=== PATIENT | male | born 1980 | race Caucasian/White ===

== ENCOUNTER → 2018-01-20 09:38 | Outpatient (CLI) | payer MEDICAID, SELFPAY ==
[2018-01-20 12:33] LABS: Vitamin D,25 Hydroxy 13.6 ng/mL (19.95-100.01)
[2018-01-20 12:37] LABS: Anion Gap 8 (5-15); BUN 12 mg/dL (7-18); BUN/Creat Ratio 15.6 RATIO (10-20); Calcium,Total 8.7 mg/dL (8.5-10.1); Chloride 100 mmol/L (98-107); Cholesterol 146 mg/dL (200); Creatinine, Serum 0.77 mg/dL (0.70-1.30); EST Glomerular Filtration Rate 120 mL/min (>60); Est Glom Filt Rate - Afr Amer 145 mL/min (>60); Glucose 83 mg/dL (74-106); High Density Lipoprotein 26 mg/dL; Sodium Level 134 mmol/L (136-145); Thyroid Stim Hormone (TSH) 0.56 uIU/mL (0.358-3.74); Triglycerides 266 mg/dL; Very Low Density Lipoprotein 53 mg/dL (5-40)
== END ==
PROVIDERS: Family Provider Family Medicine; PCP Family Medicine; Visit Provider Family Medicine
DX: Z00.00 Encounter for general adult medical examination without abnormal findings (principal)
CPT/HCPCS: 36415; 80048; 80061; 82306; 84443

== ENCOUNTER 2018-05-25 18:07 | Emergency (ER) | payer MEDICAID, SELFPAY ==
[2018-05-25 18:07] VITALS: BP 159/105; PULSE 108; RESP 16; TEMP 36.7; O2SAT 98; BMI 38.7
--- NOTE | 2018-05-25 18:30 | ED.VISSUMM ---
- ER Visit Summary Date of Service: 05/25/18 Chief Complaint: Anxiety History of Present Illness: The patient is a 37 M who presents with worsening anxiety over the past week. Patient states he lives in a residential and other residents there cause him to have increased anxiety. Patient denies any suicidal or homicidal ideations. Patient states he is on Xanax which helps for approximately 4 hours. Patient states he feels like he needs to have his Xanax dose increased. Patient states he blacks out when he becomes anxious. Patient denies any loss of consciousness. Patient denies any chest pain. Patient admits to some intermittent shortness of breath, nausea, and vomiting with his anxiety attacks. Patient denies any fevers or chills. Physical Examination: Vital signs are stable. Patient is afebrile. Patient is in no acute distress. Cranial nerves II through XII are intact. Strength is 5/5 bilateral in the upper and lower extremities. There are no sensory deficits noted. Patient is ambulating without difficulty. Heart was regular rate and rhythm. Lungs are clear and equal bilaterally. There is good respiratory effort noted. Abdomen is soft nontender. Patient does have a somewhat anxious mood on exam. Patient denies any suicidal or homicidal ideations. The remaining physical exam is within normal limits. Test Results: CBC showed a slight leukocytosis of 12.0. Basic metabolic profile is within normal limits. Emergency Department Course and Treatment: Patient was given a dose of Xanax here. Patient felt better on reevaluation. Patient was instructed that he needs to follow-up with his primary care physician or the physician who is covering for his primary care physician for any further medication adjustments with his Xanax. Patient understood and was agreeable with the plan. All questions were answered. Disposition: Discharged home Impression: Acute anxiety This note was generated with [employer] dictation software. It may contain incorrect words, spelling, and punctuation that were not noted in review of the chart prior to signing ED Disposition - Plan for ED Patient: Disposition: Home or Assisted Living Chief Complaint: Anxiety Diagnosis: Acute anxiety Instructions: ED Panic Attack Referrals: Marcelo Lantigua MD [Primary Care Provider] -
--- NOTE | 2018-05-25 18:34 | ED.DCSUM_ITS ---
- ER Visit Summary Date of Service: 05/25/18 Chief Complaint: Anxiety History of Present Illness: The patient is a 37 M who presents with worsening anxiety over the past week. Patient states he lives in a half-way and other residents there cause him to have increased anxiety. Patient denies any suicidal or homicidal ideations. Patient states he is on Xanax which helps for approximately 4 hours. Patient states he feels like he needs to have his Xanax dose increased. Patient states he blacks out when he becomes anxious. Patient denies any loss of consciousness. Patient denies any chest pain. Patient admits to some intermittent shortness of breath, nausea, and vomiting with his anxiety attacks. Patient denies any fevers or chills. Physical Examination: Vital signs are stable. Patient is afebrile. Patient is in no acute distress. Cranial nerves II through XII are intact. Strength is 5/ 5 bilateral in the upper and lower extremities. There are no sensory deficits noted. Patient is ambulating without difficulty. Heart was regular rate and rhythm. Lungs are clear and equal bilaterally. There is good respiratory effort noted. Abdomen is soft nontender. Patient does have a somewhat anxious mood on exam. Patient denies any suicidal or homicidal ideations. The remaining physical exam is within normal limits. Test Results: CBC showed a slight leukocytosis of 12.0. Basic metabolic profile is within normal limits. Emergency Department Course and Treatment: Patient was given a dose of Xanax here. Patient felt better on reevaluation. Patient was instructed that he needs to follow-up with his primary care physician or the physician who is covering for his primary care physician for any further medication adjustments with his Xanax. Patient understood and was agreeable with the plan. All questions were answered. Disposition: Discharged home Impression: Acute anxiety This note was generated with [employer] dictation software. It may contain incorrect words, spelling, and punctuation that were not noted in review of the chart prior to signing ED Disposition - Plan for ED Patient: Disposition: Home or Assisted Living Chief Complaint: Anxiety Diagnosis: Acute anxiety Instructions: ED Panic Attack Referrals: Marcelo Lantigua MD [Primary Care Provider] -
[2018-05-25] MEDS: ALPRAZolam 0.5 MG Tablet 1 MG PO (18:55)
[2018-05-25 19:38] LABS: Absolute Lymphocyte Count 3.41 X10^3/ul (0.83-4.51); Absolute Neutrophil Count 7.6 X10^3/uL (2.0-7.7); Basophil# 0.02 X10^3/uL; Basophil% 0.2 % (0-1); Eosinophil# 0.24 X10^3/uL; Hematocrit 45.3 % (40-54); Hemoglobin 15.4 g/dl (13.0-16.5); Lymphocyte # 3.41 X10^3/ul (4.0); Lymphocyte % 28.3 % (19-41); Mean Corpuscular Hgb 30.9 pg (27.0-32.0); Mean Platelet Vol. 9.3 fl (6.2-12.0); Monocyte# 0.66 X10^3/uL; Monocyte% 5.5 % (0-10); Neutrophil # 7.64 X10^3/uL (2.7-7.7); Neutrophil % 63.5 % (47-70); Platelet Count 263 K/mm3 (150-450); RBC Distribution Width CV 13.3 % (11.6-14.6); RBC Distribution Width SD 43.6 fl (35.1-43.9); Red Blood Count 4.98 M/mm3 (4.6-6.2)
[2018-05-25 19:39] LABS: Anion Gap 7 (5-15); BUN 13 mg/dL (7-18); BUN/Creat Ratio 15.6 RATIO (10-20); Calcium,Total 9.1 mg/dL (8.5-10.1); Chloride 103 mmol/L (98-107); Creatinine, Serum 0.84 mg/dL (0.70-1.30); EST Glomerular Filtration Rate 109 mL/min (>60); Est Glom Filt Rate - Afr Amer 132 mL/min (>60); Estimated Creatinine Clearance 123.12 ml/min; Glucose 114 mg/dL (74-106); Potassium 3.9 mmol/L (3.5-5.1); Sodium Level 138 mmol/L (136-145)
[2018-05-25 19:40] LABS: POSITIVE COUNT NO; POSITIVE DIFFERENTIAL NO; POSITIVE MORPHOLOGY NO
[2018-05-25] MEDS: Acetaminophen 500 MG Tablet 1000 MG PO (20:17)
[2018-05-25 20:39] VITALS: BP 145/99; PULSE 105; RESP 18
== END 2018-05-25 20:42 | disposition home or self-care (01) ==
PROVIDERS: Emergency Provider Emergency Medicine; Family Provider Family Medicine; PCP Family Medicine
DX: F41.9 Anxiety disorder, unspecified (principal); E66.9 Obesity, unspecified; F43.10 Post-traumatic stress disorder, unspecified; F25.9 Schizoaffective disorder, unspecified; Z87.19 Personal history of other diseases of the digestive system; Z79.899 Other long term (current) drug therapy; F17.200 Nicotine dependence, unspecified, uncomplicated
CPT/HCPCS: 80048; 85025; 99283

== ENCOUNTER 2018-06-17 21:42 | Emergency (ER) | payer MEDICAID, SELFPAY ==
[2018-06-17 21:43] VITALS: BP 129/76; PULSE 105; RESP 14; TEMP 36.7; O2SAT 98; BMI 39.5
--- NOTE | 2018-06-17 22:24 | ED.DCSUM_ITS ---
- ER Visit Summary Date of Service: 06/17/18 Chief Complaint: Fell asleep History of Present Illness: The patient is a 37 M who presents to the emergency department by squad. Patient was in his normal state of health. He currently stays at a senior care as he has a history of underlying psychiatric disease. The patient took his Restoril 30 mg tablet tonight. He then drove to his grandmother's house because he helps her around the house. He states that he was feeling very tired in the car and actually fell asleep. Squad was called because he was asleep in the car. On squad arrival, the patient woke easily. He states that he felt like just because of the medication. He denies any headaches, vision changes, fever, chills, other systemic symptoms. He denies any other suicidality, homicidality, delusions or hallucinations. He states that he feels back to his normal state of health. He states that it was just because of the medication. Physical Examination: Vital signs reviewed General: Well-nourished, well-developed Head: Normocephalic, atraumatic Eyes: Pupils equal and reactive, extraocular muscles intact Neck, supple, no lymphadenopathy Heart: Regular rate and rhythm Respiratory: No distress, clear bilaterally Abdomen: Soft, nontender, nondistended, no peritoneal signs Back: Nontender Extremities: Nontender, no edema, no cords Skin: Normal color no rash Neuro: Alert and oriented, no focal or lateralizing deficits Test Results: [] Emergency Department Course and Treatment: The patient is awake and alert. He has a benign physical examination. He has normal vital signs. At this time, I do not feel any workup is necessary. He took his sleeping pill early at his senior care and then fell asleep. He does not appear to be intoxicated. He has a normal neurologic examination. The patient will be discharged to his senior care. Treatment Plan: [] Disposition: Discharge Impression: 1. Therapeutic medication use This note was generated with [employer] dictation software. It may contain incorrect words, spelling, and punctuation that were not noted in review of the chart prior to signing ED Disposition - Plan for ED Patient: Chief Complaint: Fatigue Instructions: ED Weakness [facility] Referrals: Marcelo Lantigua MD [Primary Care Provider] -
--- NOTE | 2018-06-17 22:35 | ED.RN ---
pt reports his residential gave him his HS meds at 6 pm and then he had to drive to get groceries.
== END 2018-06-17 22:55 | disposition home or self-care (01) ==
PROVIDERS: Emergency Provider Emergency Medicine; Family Provider Family Medicine; PCP Family Medicine
DX: R53.83 Other fatigue (principal); Z79.899 Other long term (current) drug therapy; F99 Mental disorder, not otherwise specified
CPT/HCPCS: 99283

== ENCOUNTER 2018-08-21 18:52 | Emergency (ER) | payer MEDICAID, SELFPAY ==
[2018-08-21 18:53] VITALS: BP 172/108; PULSE 131; RESP 17; TEMP 37.3; O2SAT 96; BMI 37.3
--- NOTE | 2018-08-21 19:07 | ED.VISSUMM ---
- ER Visit Summary Date of Service: 08/21/18 Chief Complaint: Bugs History of Present Illness: The patient is a 37 M who resides at a nursing home. He has a history of anxiety and schizoaffective disorder. He is concerned for bugs on his bilateral feet. He says he lives in a dirty nursing home and is exposed to bugs. His feet have been itchy. He denies any redness or warmth. Denies any fevers or other symptoms. Denies any thoughts of suicide or homicide. Denies any hallucinations. Denies any trouble taking care of himself. Physical Examination: Hypotensive and tachycardic. Afebrile. Alert and oriented. Slightly anxious. Heart regular on my exam, 104. Lungs clear. Extremities may be show some very mild erythema diffusely. I do not appreciate any definite rash or edema. No sign of fungal infection. Skin is intact. He is neurovascularly intact. Test Results: None indicated Emergency Department Course and Treatment: Patient complains of itching. Is concerned for bugs or mites. I advised him that we can prescribe Elimite. He may use Benadryl for itching. Follow-up with primary care for recheck. Follow-up for blood pressure checks. Return for any worsening issues, thoughts of suicide or homicide. Trouble taking care of yourself. Treatment Plan: As above Disposition: Discharge Impression: 1. Bilateral foot rash This note was generated with [employer] dictation software. It may contain incorrect words, spelling, and punctuation that were not noted in review of the chart prior to signing ED Disposition - Plan for ED Patient: Chief Complaint: Bite Referrals: Marcelo Lantigua MD [Primary Care Provider] -
--- NOTE | 2018-08-21 19:11 | ED.DCSUM_ITS ---
- ER Visit Summary Date of Service: 08/21/18 Chief Complaint: Bugs History of Present Illness: The patient is a 37 M who resides at a [facility]. He has a history of anxiety and schizoaffective disorder. He is concerned for bugs on his bilateral feet. He says he lives in a dirty fdc and is exposed to bugs. His feet have been itchy. He denies any redness or warmth. Denies any fevers or other symptoms. Denies any thoughts of suicide or homicide. Denies any hallucinations. Denies any trouble taking care of himself. Physical Examination: Hypotensive and tachycardic. Afebrile. Alert and oriented. Slightly anxious. Heart regular on my exam, 104. Lungs clear. Ext remities may be show some very mild erythema diffusely. I do not appreciate any definite rash or edema. No sign of fungal infection. Skin is intact. He is neurovascularly intact. Test Results: None indicated Emergency Department Course and Treatment: Patient complains of itching. Is concerned for bugs or mites. I advised him that we can prescribe Elimite. He may use Benadryl for itching. Follow-up with primary care for recheck. Follow- up for blood pressure checks. Return for any worsening issues, thoughts of suicide or homicide. Trouble taking care of yourself. Treatment Plan: As above Disposition: Discharge Impression: 1. Bilateral foot rash This note was generated with Insights dictation software. It may contain incorrect words, spelling, and punctuation that were not noted in review of the chart prior to signing ED Disposition - Plan for ED Patient: Chief Complaint: Bite Referrals: Marcelo Lantigua MD [Primary Care Provider] -
--- NOTE | 2018-08-21 19:11 | ED.DEP ---
ED Disposition - Plan for ED Patient: Chief Complaint: Bite Instructions: Self-Care for Skin Rashes Prescriptions: Permethrin [Elimite] 60 gm TP X1 #1 unit Referrals: Marcelo Lantigua MD [Primary Care Provider] -
== END 2018-08-21 19:17 | disposition home or self-care (01) ==
LOC: ED 19:14
PROVIDERS: Emergency Provider Emergency Medicine; Family Provider Family Medicine; PCP Family Medicine
DX: R21 Rash and other nonspecific skin eruption (principal); F41.9 Anxiety disorder, unspecified; F25.9 Schizoaffective disorder, unspecified; Z79.899 Other long term (current) drug therapy
CPT/HCPCS: 99282

== ENCOUNTER 2019-05-07 13:39 | Emergency (ER) | payer MEDICAID, SELFPAY ==
[2019-05-07] VITALS (7 sets, daily range): BP systolic 146–176; BP diastolic 89–112; PULSE 82–138; RESP 18–20; TEMP 37.2; O2SAT 95–99; BMI 35.9
[2019-05-07] MEDS: LORazepam 1 MG Tablet PO ×2 (14:36→18:45)
--- NOTE | 2019-05-07 14:40 | CM.ED ---
SOCIAL WORK DISCUSSED WITH DR. PHELPS. PATIENT PINK SLIPPED BY POLICE FOR HOMICIDAL IDEATION. CRISIS TO EVALUATE ONCE MEDICALLY CLEARED. SUSAN MALDONADO, BUSINESS PROCESS MODELER, HIDE HANDLER.
[2019-05-07 15:02] LABS: Absolute Lymphocyte Count 2.22 X10^3/ul (0.83-4.51); Basophil# 0.03 X10^3/uL; Basophil% 0.2 % (0-1); Eosinophil# 0.09 X10^3/uL; Eosinophils% 0.6 % (0-5); Hemoglobin 15.8 g/dl (13.0-16.5); Lymphocyte # 2.22 X10^3/ul (4.0); Lymphocyte % 15.2 % (19-41); Mean Corp Hgb Conc 35.1 g/gl (32-36); Mean Corpuscular Hgb 31.3 pg (27.0-32.0); Mean Corpuscular Volume 89.3 fL (80-94); Mean Platelet Vol. 9.4 fl (6.2-12.0); Monocyte# 1.22 X10^3/uL; Monocyte% 8.4 % (0-10); Neutrophil # 10.95 X10^3/uL (2.7-7.7); Neutrophil % 75.1 % (47-70); Platelet Count 337 K/mm3 (150-450); RBC Distribution Width CV 13.6 % (11.6-14.6); RBC Distribution Width SD 44.1 fl (35.1-43.9); Red Blood Count 5.04 M/mm3 (4.6-6.2); White Blood Count 14.6 K/mm3 (4.4-11.0)
[2019-05-07 15:03] LABS: POSITIVE COUNT NO; POSITIVE DIFFERENTIAL NO; POSITIVE MORPHOLOGY NO
[2019-05-07 15:08] LABS: Amphetamine Urine VISTA NEGATIVE (<1000 ng/mL); Barbiturate Urine VISTA NEGATIVE (< 200 ng/mL); Benzodiazepine Urine VISTA NEGATIVE (< 200 ng/mL); Cocaine Urine VISTA NEGATIVE (< 300 ng/mL); Ecstacy Urine VISTA NEGATIVE (< 500 ng/mL); Methadone Urine VISTA NEGATIVE (< 300 ng/mL); PCP Urine VISTA NEGATIVE (< 25 ng/mL); THC Urine VISTA NEGATIVE (< 50 ng/mL); Vista UDS pH Range 6
[2019-05-07 15:11] LABS: ALB/GLOB Ratio 0.9 RATIO (0.9-2.4); AST(SGOT) 19 U/L (15-37); Alanine Aminotransfer ALT/SGPT 30 U/L (16-61); Albumin, Serum 3.8 g/dL (3.2-5.0); Alkaline Phosphatase 86 U/L (45-117); Anion Gap 3 (5-15); BUN 7 mg/dL (7-18); BUN/Creat Ratio 8.2 RATIO (10-20); Chloride 101 mmol/L (98-107); Creatinine, Serum 0.86 mg/dL (0.70-1.30); EST Glomerular Filtration Rate 105 mL/min (>60); Est Glom Filt Rate - Afr Amer 127 mL/min (>60); Estimated Creatinine Clearance 119.07 ml/min; Globulin 4.2 g/dL (2.2-4.2); Glucose 108 mg/dL (74-106); Sodium Level 129 mmol/L (136-145)
--- NOTE | 2019-05-07 16:13 | ED.RN ---
THOMPSON WITH CRISIS IS AWARE THAT PT NEEDS TO BE SEEN
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
--- NOTE | 2019-05-07 17:42 | ED.RN ---
PT RESTING QUIETLY IN BED, FREQUENT BEVERAGES GIVEN, MOOD MORE CALM AND RELAXED SINCE ATIVAN GIVEN. PT REMAINS COOPERATIVE.
--- NOTE | 2019-05-07 18:25 | CM.ED ---
SOCIAL WORK ROSANNE FROM CRISIS HERE AND ASSESSED PATIENT. ROSANNE WORKING ON INPATIENT PSYCH PLACEMENT AT THIS TIME. SUSAN MALDONADO, PERSONNEL ASSISTANT, STOGY MAKER.
--- NOTE | 2019-05-07 20:07 | ED.RN ---
[facility] CALLED AND HAVE FORMALLY ACCEPTED PATIENT PENDING A REPEAT SODIUM LEVEL AND TO MONITOR BLOOD PRESSURE. DR. RAYMOND MADE AWARE. ORDERS TO BE PLACED
[2019-05-07] MEDS: 0.9% Normal Saline 1,000 ML 999 ML IV (20:20)
[2019-05-08] VITALS (7 sets, daily range): BP systolic 142–156; BP diastolic 90–94; PULSE 86–87; RESP 16–19; TEMP 36.6; O2SAT 96–98
--- NOTE | 2019-05-08 00:11 | ED.RN ---
DR RASHEED AWARE PT'S WHAT PT'S BP IS AND THAT [facility] WILL NOT TAKE THE PT UNTIL THE PT'S DIASTOLIC IS BELOW 100.NO NEW ORDERS.IV DCD FROM [facility] AFTER NORMAL SALINE INFUSION COMPLETE.
[2019-05-08 00:12] LABS: Anion Gap 3 (5-15); BUN 9 mg/dL (7-18); BUN/Creat Ratio 10.2 RATIO (10-20); Calcium,Total 8.8 mg/dL (8.5-10.1); Chloride 106 mmol/L (98-107); Creatinine, Serum 0.88 mg/dL (0.70-1.30); EST Glomerular Filtration Rate 102 mL/min (>60); Est Glom Filt Rate - Afr Amer 123 mL/min (>60); Estimated Creatinine Clearance 116.37 ml/min; Glucose 144 mg/dL (74-106); Potassium 4.1 mmol/L (3.5-5.1); Sodium Level 136 mmol/L (136-145)
== END 2019-05-08 08:21 ==
LOC: ED 14:41
PROVIDERS: Emergency Medicine; Emergency Provider Emergency Medicine
DX: F29 Unspecified psychosis not due to a substance or known physiological condition (principal); F43.10 Post-traumatic stress disorder, unspecified; F25.9 Schizoaffective disorder, unspecified; F41.9 Anxiety disorder, unspecified; Z91.14 Patient's other noncompliance with medication regimen; Z72.0 Tobacco use
CPT/HCPCS: 36415; 80048; 80053; 80307; 80320; 85025; 96360; 96361; 99285; J7030; J7050; A4216; G0480

== ENCOUNTER 2019-08-12 14:47 | Emergency (ER) | payer MEDICAID, SELFPAY ==
[2019-05-07 13:40] VITALS: BMI 35.9
[2019-08-12 14:48] VITALS: BP 157/99; PULSE 145; RESP 20; TEMP 36.4; O2SAT 96; BMI 37.3
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
--- NOTE | 2019-08-12 15:28 | EKG12_ITS ---
Test Reason : ANXIETY Blood Pressure : / mmHG Vent. Rate : 134 BPM Atrial Rate : 134 BPM P-R Int : 154 ms QRS Dur : 088 ms QT Int : 272 ms P-R-T Axes : 049 090 016 degrees QTc Int : 406 ms Sinus tachycardia Rightward axis Borderline ECG Confirmed by ELKE WILLAMS, YARY ([id number]), pictures editor DENICE CONTRERAS ([id number]) on 08/14/2019 1:31:38 PM Referred By: VARINDER Confirmed By:JUANA BEDOYA MD
--- NOTE | 2019-08-12 15:28 | RAD_ITS ---
STUDY: X-RAY CHEST REASON FOR EXAM: Male, 38 years old. Chest pain/anxiety. TECHNIQUE: Single AP portable view of the chest. COMPARISON: None. FINDINGS: EKG electrodes are seen. The lungs are clear and expanded. There is no demonstrated pleural abnormality. Normal size heart. Normal mediastinum and logan. Normal visualized pulmonary arteries. Normal visualized aortic arch and descending thoracic aorta. There are diffuse degenerative changes of the visualized thoracic spine. Findings suggestive of a healed right mid clavicular fracture. There is no demonstrated abnormality of the visualized soft tissue structures of the upper abdomen. RAD/Chest 1 View (Portable) IMPRESSION: No acute abnormality is present. Electronically Signed: Wenceslao Thao, at 15:48 EDT , Service support ,
[2019-08-12 15:34] VITALS: BP 148/97; PULSE 136; RESP 20; O2SAT 96
[2019-08-12] MEDS: 0.9% Normal Saline 1,000 ML 1000 ML IV (15:35)
[2019-08-12 15:58] LABS: Basophil# 0.07 X10^3/uL; Basophil% 0.4 % (0-1); Eosinophil# 0.05 X10^3/uL; Eosinophils% 0.3 % (0-5); Hematocrit 47.8 % (40-54); Hemoglobin 16.2 g/dL (13.0-16.5); Lymphocyte % 11.3 % (19-41); Mean Corp Hgb Conc 33.9 g/dL (32-36); Mean Corpuscular Hgb 30.7 pg (27.0-32.0); Mean Corpuscular Volume 90.5 fL (80-94); Mean Platelet Vol. 9.5 fl (6.2-12.0); Monocyte# 0.91 X10^3/uL; Monocyte% 4.7 % (0-10); NRBC Flagged by Analyzer 0 % (0-5); Neutrophil % 82.1 % (47-70); Platelet Count 336 K/mm3 (150-450); RBC Distribution Width CV 13.4 % (11.6-14.6); RBC Distribution Width SD 44.9 fl (35.1-43.9); Red Blood Count 5.28 M/mm3 (4.6-6.2); White Blood Count 19.5 K/mm3 (4.4-11.0)
[2019-08-12 16:08] LABS: Anion Gap 8 (5-15); BUN 8 mg/dL (7-18); BUN/Creat Ratio 8.2 RATIO (10-20); Chloride 98 mmol/L (98-107); Creatinine, Serum 0.98 mg/dL (0.70-1.30); EST Glomerular Filtration Rate 91 mL/min (>60); Est Glom Filt Rate - Afr Amer 110 mL/min (>60); Estimated Creatinine Clearance 104.49 ml/min; Glucose 119 mg/dL (74-106); Potassium 3.6 mmol/L (3.5-5.1); Sodium Level 132 mmol/L (136-145)
[2019-08-12 17:29] LABS: Bacteria 0 SEEN /hpf (None Seen); Mucous, Urine 0 SEEN /hpf (<or=2+); Red Blood Cells-Urine 0 SEEN /hpf (0-5); Squamous Epithelial Cells - UA 0 SEEN /hpf (0-5); White Blood Cells 0 SEEN /hpf (0-5)
[2019-08-12] MEDS: Phenazopyridine 95 MG Tablet 190 MG PO (17:30)
[2019-08-12 17:31] LABS: Color, Urine Straw (Yellow); Glucose, Dipstick Normal (Normal); Ketone-Dipstick Negative (Negative); Leukocyte Esterase-Dipstick Negative /ul (Negative); Nitrite-Dipstick Negative (Negative); Occult Blood-Urine 150 /ul (Negative); Protein-Dipstick Negative (Negative); Specific Gravity, Urine 1.005 (1.002-1.030); Urine Bilirubin Dipstick Negative (Negative); Urine Clarity Clear (Clear); Urine Urobilinogen Normal (Normal)
[2019-08-12 17:32] LABS: Thyroid Stim Hormone (TSH) 0.41 uIU/mL (0.358-3.74)
[2019-08-12 17:34] VITALS: PULSE 126
[2019-08-12] MEDS: Lidocaine Jelly 2% 20 ML Syringe (URO-JET) 20 APPLIC TOPICAL (17:55)
[2019-08-12 18:56] VITALS: PULSE 136
--- NOTE | 2019-08-12 18:56 | ED.RN ---
DR. REEDER IS AWARE THAT PT'S HR IS ELEVATED AND STATES HE IS OKAY TO DISCHARGE.
--- NOTE | 2019-08-12 19:00 | CM.ED ---
SOCIAL WORK INFORMANT: NURSEDESTINY REASON FOR REFERRAL: RESOURCES MET WITH PATIENT IN ROOM. INTRODUCED ROLE. PATIENT STATES WILL NOT RETURN TO HIS GRANDMOTHER'S HOME HE DOES NOT FEEL SAFE THERE. PATIENT GAVE LIFE REVIEW OF HX OF PTSD AND ANXIETY. PATIENT DISCUSSED FAMILY DYNAMICS. PATIENT STATES HAS MONEY SAVED UP AND PLANS TO STAY AT A [facility] THIS EVENING. PATIENT STATES FOLLOWS WITH THE COUNSELING CENTER AND WILL BE CALLING HIS HELPER/DRIVER, LACHO TOMORROW. PATIENT STATES DROVE SELF TO HOSPITAL. PATIENT DENIES ANY FURTHER NEEDS. PATIENT TO BE DISCHARGED. SUSAN MALDONADO, AUTOMATION ENGINEERING MANAGER, SEMICONDUCTOR WAFERS MARKER.
[2019-08-12] MEDS: Acetaminophen 500 MG Tablet 1000 MG PO (19:19)
[2019-08-12 19:20] VITALS: BP 180/94; PULSE 136; RESP 20; O2SAT 98
[2019-08-12 19:48] LABS: Amphetamine Urine VISTA NEGATIVE (<1000 ng/mL); Barbiturate Urine VISTA NEGATIVE (< 200 ng/mL); Benzodiazepine Urine VISTA NEGATIVE (< 200 ng/mL); Cocaine Urine VISTA NEGATIVE (< 300 ng/mL); Ecstacy Urine VISTA NEGATIVE (< 500 ng/mL); Methadone Urine VISTA NEGATIVE (< 300 ng/mL); PCP Urine VISTA NEGATIVE (< 25 ng/mL); THC Urine VISTA NEGATIVE (< 50 ng/mL); Vista UDS pH Range 6
== END 2019-08-12 19:21 | disposition home or self-care (01) ==
PROVIDERS: Emergency Provider Emergency Medicine
DX: F41.9 Anxiety disorder, unspecified (principal); F25.9 Schizoaffective disorder, unspecified; Z91.14 Patient's other noncompliance with medication regimen; R07.89 Other chest pain; R33.9 Retention of urine, unspecified; R00.0 Tachycardia, unspecified; F43.10 Post-traumatic stress disorder, unspecified; F17.200 Nicotine dependence, unspecified, uncomplicated
CPT/HCPCS: 51702; 71045; 80048; 80307; 81001; 84443; 84484; 85025; 93005; 96360; 96361; 99285; J7030; A4216

== ENCOUNTER 2019-08-17 22:33 | Emergency (ER) | payer MEDICAID, SELFPAY ==
[2019-08-17 22:34] VITALS: BP 155/98; PULSE 114; RESP 18; TEMP 36.6; O2SAT 98; BMI 38.7
--- NOTE | 2019-08-17 23:47 | ED.VIS.GEN ---
History of Present Illness Chief Complaint: Loera C/O Narrative: This patient is a 38-year-old male who presents with pain from his Loera catheter. This was recently placed due to urinary retention. He has been unable to follow-up with urology yet. He complains that it pinches when he bends over. He has no other complaints except anxiety. He presented to have his catheter removed. Past Medical History - Allergies and Home Meds Allergies/Adverse Reactions: Allergies amoxicillin [Amoxicillin] Allergy (Verified 08/17/19 22:37) Unknown sulfamethoxazole [From Bactrim] Allergy (Verified 08/17/19 22:37) Unknown trimethoprim [From Bactrim] Allergy (Verified 08/17/19 22:37) Unknown clarithromycin [From Biaxin] Adverse Reaction (Verified 08/17/19 22:37) Vomiting Primary Care Physician: Care Physician,Cassidy Primary [Primary Care Provider] - Past Medical History: - - Anxiety Smoking Status: Current every day smoker Review of Systems All systems negative except as indicated General: Denies: Fever Cardiovascular: Denies: Chest pain Respiratory: Denies: Dyspnea Musculoskeletal: Reports: Back pain Physical Exam Vital Signs/Narrative: Vital Signs Temp Pulse Resp BP Pulse Ox 08/17/19 22:34 97.8 F 114 H 18 155/98 H 98 Inital Vital Signs reviewed: Yes General: Well nourished Head: Normocephalic Eyes: EOMI ENT: Moist mucous membranes Neck: Supple Cardiovascular: Regular rate, Regular rhythm Respiratory: No distress, CTA bilaterally Abdomen: Soft, Nontender Skin: Normal color Neurological: Alert Psychological: - - Anxious Diagnostic/Tx/Re-eval - Medical Decision Making Records were reviewed. Loera catheter was placed for urinary retention several days ago. He complains that it pinches with movement and would like it removed. Loera was discontinued and patient discharged. ED Disposition - Plan for ED Patient: Disposition: Home or Assisted Living Diagnosis: Loera catheter problem Referrals: Care Physician,No Primary [Primary Care Provider] - Additional Instructions: You were seen due to pain from your urinary catheter. This was removed. Follow-up as an outpatient.
--- NOTE | 2019-08-18 00:05 | NURSING ---
TORREZ CATH D/C. 10CC FLUID REMOVED FROM TORREZ. PT TOLERATED IT WELL. TORREZ EMPTIED FOR 850CC OF CLEAR YELLOW URINE
[2019-08-18 00:06] VITALS: BP 132/74; PULSE 90; RESP 17; O2SAT 98
== END 2019-08-18 00:06 | disposition home or self-care (01) ==
PROVIDERS: Emergency Provider Emergency Medicine
DX: Z46.6 Encounter for fitting and adjustment of urinary device (principal); M54.9 Dorsalgia, unspecified; F41.9 Anxiety disorder, unspecified; F17.200 Nicotine dependence, unspecified, uncomplicated
CPT/HCPCS: 99284

== ENCOUNTER → 2020-10-27 10:58 | Outpatient (CLI) | payer MEDICAID, SELFPAY ==
[2020-10-27 12:46] LABS: Hemoglobin A1c 5.9 % (3.8-5.6)
[2020-10-27 13:06] LABS: Prolactin 3.6 ng/mL
== END ==
PROVIDERS: Referring Provider Psychiatry & Neurology Psychiatry; Visit Provider Psychiatry & Neurology Psychiatry
DX: Z79.899 Other long term (current) drug therapy (principal)
CPT/HCPCS: 36415; 83036; 84146

== ENCOUNTER 2023-10-31 09:57 | Emergency (ER) | payer MEDICAID, SELFPAY ==
[2023-10-31 09:59] VITALS: BP 176/114; PULSE 126; RESP 16; TEMP 36.9; O2SAT 97
--- NOTE | 2023-10-31 10:55 | EX.ED.DYSGE1 ---
HPI History of Present Illness Chief Complaint: Hypertension Informant: patient Onset/Context/Timing Onset: Yesterday Context: Gradual Onset Timing: Continuous Worsened by: Nothing Relieved by: Exercise, drinking water Narrative Narrative: Patient presents with elevated blood pressure that began yesterday. Patient saw his primary care physician for this yesterday. Patient was given a second antihypertensive medication. Patient states he has not started this yet. Patient states that he lives in a [facility] and the nurse there checked his blood pressure this morning and it was 180/120. Nurse decided to call EMS to have the patient evaluated in the emergency department. Patient denies any chest pain. Patient denies any shortness of breath. Patient denies any nausea or vomiting. Patient denies any headaches. Patient denies any neck or back pain. PFSH PFS Medical History (Updated 10/31/23 @ 12:[address] Zackary Aleman DO) Hypertension Home Medications alprazolam 1 mg tablet (Xanax) 1 mg PO TID PRN Anxiety 09/16/15 [History Last Taken Unknown] temazepam 30 mg capsule 30 mg PO QHS 08/17/19 [History Last Taken Unknown] Allergy/AdvReac Type Severity Reaction Status Date / Time amoxicillin [Amoxicillin] Allergy Unknown Verified 08/17/19 22:37 sulfamethoxazole Allergy Unknown Verified 08/17/19 22:37 [From Bactrim] trimethoprim [From Bactrim] Allergy Unknown Verified 08/17/19 22:37 clarithromycin [From Biaxin] AdvReac Vomiting Verified 08/17/19 22:37 Surgical History (Updated 10/31/23 @ 12:[address] Zackary Aleman DO) History of back surgery History of testicular surgery Social History Smoking Status: Current every day smoker tobacco type: cigarettes ROS ROS ED Constitutional Constitutional ED: Denies chills or fever(s) Eyes Eyes: Denies blurry vision or change in vision ENT ENT ED: Denies rhinorrhea or sore throat Cardiovascular Cardiovascular: Denies chest pain or palpitations Respiratory/Chest Respiratory/Chest: Denies cough or dyspnea Gastrointestinal Gastrointestinal: Denies nausea or vomiting Genitourinary Genitourinary ED: Denies dysuria or hematuria Musculoskeletal Musculoskeletal: Denies back pain or neck pain Integumentary Denies abscess or rash Neurologic Neurologic: Denies headache(s) or weakness Allergic/Immunologic Allergic/Immunologic ED: Denies mouth swelling or urticaria EXAM Physical Exam Const Vital Signs: 10/31/23 09:59 10/31/23 10:08 10/31/23 11:18 Temperature 98.5 F Temperature Source Temporal Pulse Rate 126 H Respiratory Rate 16 Respiratory Effort Normal Non-Labored Respiratory Pattern Normal Blood Pressure 176/114 H 156/100 H Blood Pressure Mean 134 118 Pulse Ox 97 Oxygen Delivery Method Room Air Positive well nourished, well developed and obese General Appearance ED: well developed and NAD Nutritional Appearance: obese HEENT Reports moist mucous membranes Neck supple and no JVD Resp normal respiratory effort and clear to auscultation bilaterally Cardio regular rate and regular rhythm GI non-tender and non-distended Palpation: soft Extremity normal to inspection General Extremety ED: Negative for edema or tenderness General Extremity: Negative for edema Neuro oriented x3, CN's II-XII intact bilaterally and no sensory deficits noted Sensorium / Orientation: alert Motor Exam: strength 5/5 throughout Psych mental status grossly normal MDM MDM MDM Narrative Medical decision making narrative: Differential diagnosis includes hypertensive urgency, accelerated hypertension, cardiac dysrhythmia, cardiac ischemia, and electrolyte abnormality. Chest x-ray will be obtained to assess for pneumonia and widened mediastinum. CBC will be obtained to assess for leukocytosis and anemia. Basic metabolic profile will be obtained to assess for electrolyte abnormality and renal function. High-sensitivity troponin will be obtained to assess for cardiac ischemia. Treatment and Re-Evaluation :: Smoking cessation was discussed. Patient did not want any testing done at this time. Patient's repeat blood pressure was 156/100. Patient states he just wants to go home. Patient will sign out AGAINST MEDICAL ADVICE. Patient was instructed to follow-up with his primary care physician in 5 to 7 days for reevaluation. Patient was instructed return if worse in any way. Patient understood and was agreeable with the plan. All questions were answered. Discharge Plan Triage Chief Complaint: Hypertension ED Provider: Zackary Aleman Dx/Rx/DC Orders Clinical Impression: Hypertension Prescriptions: No Action alprazolam [Xanax] 1 MG tablet 1 mg PO TID PRN (Reason: Anxiety) temazepam 30 capsule 30 mg PO QHS Primary Care Provider: Maida Pinzon NP Referrals: Podlogar,Maida [employer] MANAGER, [employer]NAGER-C [Primary Care Provider] - 5-7 Days Disposition Disposition: Against Medical Advice Discharge Date/Time: 10/31/23 11:20
[2023-10-31 10:57] VITALS: BMI 39.9
[2023-10-31 11:18] VITALS: BP 156/100
== END 2023-10-31 11:20 | disposition left against medical advice (07) ==
PROVIDERS: Emergency Provider Emergency Medicine; PCP Nurse Practitioner Primary Care; Visit Provider Emergency Medicine
DX: I10 Essential (primary) hypertension (principal); F17.210 Nicotine dependence, cigarettes, uncomplicated
CPT/HCPCS: 99284